=== PATIENT | female | born 1960 | race Caucasian/White ===

== ENCOUNTER 2017-02-17 08:04 | Emergency (ER) | payer MEDICARE ==
[2017-02-17 09:05] LABS: Bilirubin Negative (Negative); Blood, Urine Large (Negative); Glucose, Urine (Dipstick) Negative (Negative); Ketone, Urine Negative (Negative); Nitrite Negative (Negative); Protein, Urine (Dipstick) 30 mg/dL (Neg-Trace); Urobilinogen 0.2 mg/dL (0.2-1.0)
[2017-02-17 09:27] LABS: Hematocrit 43.2 % (36.0-47.0); Mean Platelet Volume 7.8 fL (7.4-10.4); Red Blood Cell (RBC) Count 4.53 mill/uL (4.20-5.40); White Blood Cell (WBC) Count 35.1 thou/uL (4.8-10.8)
[2017-02-17 09:40] LABS: ALT (SGPT) 43 U/L (8-55); AST (SGOT) 24 U/L (5-34); Alkaline Phosphatase 98 U/L (40-150); Anion Gap 13 mmol/L (10-20); BUN (Urea Nitrogen) 17 mg/dL (9.8-20.1); Bilirubin, Total 0.3 mg/dL (0.2-1.2); Calc. Creatinine Clearance 0 mL/min (70-130); Calcium 9.1 mg/dL (7.8-10.44); Carbon Dioxide 25 mmol/L (22-29); Chloride 99 mmol/L (98-107); Estimated GFR-MDRD 77; Globulin 2.5 g/dL (2.4-3.5); Protein, Total 6.8 g/dL (6.0-8.3)
[2017-02-17 09:46] LABS: RBC/HPF 0-3 HPF (0-3)
[2017-02-17 09:47] LABS: Bacteria/HPF 2+ HPF (None Seen); Hyaline Casts/LPF 0-3 HYALINE CAST LPF (0-3 Hyaline); Renal Epithelial 0-3 HPF (0-3); Transitional Epithelial 0-3 HPF (0-3)
[2017-02-17 09:57] LABS: Neutrophil 31 % (42-75)
== END 2017-02-17 11:20 | disposition home or self-care (01) ==
LOC: ERS 08:04
DX: N39.0 Urinary tract infection, site not specified (principal); E11.9 Type 2 diabetes mellitus without complications; I10 Essential (primary) hypertension; E78.5 Hyperlipidemia, unspecified; F41.9 Anxiety disorder, unspecified; F31.9 Bipolar disorder, unspecified
CPT/HCPCS: 36415; 80053; 81003; 81015; 85025; 87086; 96360

== ENCOUNTER 2017-06-06 10:08 | Day surgery (SDC) | payer MEDICARE ==
[2017-06-05 15:29] VITALS: BMI 32.5
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
--- NOTE | 2017-06-06 15:42 | MRI ---
MRI CERVICAL SPINE NONCONTRAST 06/06/17 HISTORY: Neck pain with bilateral arm and hand numbness. Right leg pain. FINDINGS: The spinal cord throughout the cervical levels has a normal appearance without evidence of compressio n, expansion, or abnormal signal. Vertebral body height and alignment are maintained. Bone marrow sig nal is within normal limits. Mild posterior osteophyte/disc complexes are present at the C4-5 and C6- 7 levels. At the C6-7 level, it is slightly greater to the left of midline with slight effacement of the left ventral aspect of the thecal sac. The neural foramina remain patent. IMPRESSION: Mild degenerative changes of the cervical spine as detailed above. No focal disc herniation or nerve root compression are apparent. POS: [facility]
== END 2017-06-06 17:20 | disposition home or self-care (01) ==
LOC: SDC/OP 10:08
PROVIDERS: ATTEND Specialist
DX: M43.16 Spondylolisthesis, lumbar region (principal); M54.12 Radiculopathy, cervical region; I10 Essential (primary) hypertension; G43.909 Migraine, unspecified, not intractable, without status migrainosus; E03.9 Hypothyroidism, unspecified; K58.9 Irritable bowel syndrome, unspecified; F31.9 Bipolar disorder, unspecified; E11.9 Type 2 diabetes mellitus without complications; Z88.5 Allergy status to narcotic agent; Z88.8 Allergy status to other drugs, medicaments and biological substances; Z79.4 Long term (current) use of insulin; Z79.899 Other long term (current) drug therapy; Z90.710 Acquired absence of both cervix and uterus; Z98.890 Other specified postprocedural states
CPT/HCPCS: 36416; 72141; 72148

== ENCOUNTER 2017-07-24 08:55 | Outpatient (CLI) | payer MEDICARE ==
[2017-07-24 11:25] LABS: Hemoglobin 15.4 g/dL (12.0-16.0); Mean Corpuscular HGB CONC 32.6 g/dL (32.0-36.0); Mean Corpuscular Hemoglobin 31.4 pg (27.0-31.0); Mean Corpuscular Volume 96.2 fl (81.0-99.0); Mean Platelet Volume 8.2 fL (7.4-10.4); Platelet Count 304 thou/uL (130-400); RBC Distribution Width 11.9 % (11.5-14.5); Red Blood Cell (RBC) Count 4.92 mill/uL (4.20-5.40); White Blood Cell (WBC) Count 24.7 thou/uL (4.8-10.8)
[2017-07-24 11:40] LABS: Anion Gap 14 mmol/L (10-20); BUN (Urea Nitrogen) 14 mg/dL (9.8-20.1); Calc. Creatinine Clearance 0 mL/min (70-130); Calcium 9.7 mg/dL (7.8-10.44); Carbon Dioxide 25 mmol/L (22-29); Chloride 103 mmol/L (98-107); Estimated GFR-MDRD 71; Glucose 143 mg/dL (70-105); Sodium 138 mmol/L (136-145)
--- NOTE | 2017-07-24 17:10 | EKG ---
Test Reason : Blood Pressure : / mmHG Vent. Rate : 068 BPM Atrial Rate : 068 BPM P-R Int : 188 ms QRS Dur : 104 ms QT Int : 406 ms P-R-T Axes : 049 010 007 degrees QTc Int : 431 ms Normal sinus rhythm Minimal voltage criteria for LVH, may be normal variant Cannot rule out Anterior infarct , age undetermined Abnormal ECG When compared with ECG of 19-APR-2016 11:20, CO interval has decreased Confirmed by DR. Pat AGUAYO ([id number]) on 07/24/2017 5:10:18 PM Referred By: MARCOS Confirmed By:DR. Pat AGUAYO
== END 2017-07-24 08:56 | disposition home or self-care (01) ==
LOC: LABBT 08:55
PROVIDERS: ATTEND Neurological Surgery
DX: Z01.810 Encounter for preprocedural cardiovascular examination (principal); Z01.812 Encounter for preprocedural laboratory examination; M48.061 Spinal stenosis, lumbar region without neurogenic claudication
CPT/HCPCS: 80048; 85027; 93005; 93010

== ENCOUNTER 2017-07-24 09:15 | Inpatient (IN) | payer MEDICARE ==
[2017-08-02] MEDS ORDERED: CEFAZOLIN/Water 2 GM/20 ML SYRINGE ONE (09:09)
[2017-08-02] MEDS ORDERED: Sodium Chloride 0.9% 10 ML ONE (09:32)
[2017-08-02] MEDS ORDERED: Fentanyl 250 MCG/5 ML VIAL ONE ×2 (09:41→12:16)
[2017-08-02] MEDS ORDERED: Midazolam HCl 2 mg/2 ml Vial ONE (09:41)
[2017-08-02] MEDS ORDERED: Fentanyl 100 MCG/2 ML VIAL ONE (10:53)
--- NOTE | 2017-08-02 11:26 | OP ---
DATE OF PROCEDURE: 08/02/2017 SURGEON: Aldair Joy M.D. CORRECTIONS OFFICER: Neha Gibbons PROCEDURE: Left L4-L5 laminectomy, facetectomy, foraminotomy, interbody arthrodesis, intravertebral biomechanical device, local morselized autograft, demineralized bone matrix, posterior lateral arthro desis and pedicle screw instrumentation L4-L5. PROCEDURE IN DETAIL: The patient was brought to the operating room, intubated. She was rolled in th e prone position on gel-filled chest rolls. Incision was made exposing L4-5 and our level was confir med by x-ray. We performed left L4-L5 laminectomy, facetectomy, foraminotomy, and completely decompr essed left L4 and left L5. The disc itself was incised and debrided and the bony endplates decortica sabrina for the purpose of arthrodesis. An appropriately sized intravertebral biomechanical PEEK device was brought into the field, filled with demineralized bone matrix, local morselized autograft, and ta pped into place securely at L4-5. Next, pedicle screws were placed at left L4 and left L5 using late ral fluoroscopic guidance and positioning was confirmed with x-ray. A karley was secured between the sc rews, connected by nuts which were final tightened. The wound was then extensively irrigated, immacu late hemostasis was secured. Combination of demineralized bone matrix, local morselized autograft wa s laid over the right laminar and posterolateral surfaces for the purpose of arthrodesis. Vancomycin powder was applied and the wound was then closed in anatomic layers.
[2017-08-02] MEDS ORDERED: diphenhydrAMINE 50 MG/ML VIAL IVP PRN (12:03)
[2017-08-02] MEDS ORDERED: Promethazine 25 MG TAB PO PRN (12:03)
[2017-08-02] MEDS ORDERED: tiZANidine HCl 4 MG TAB PO PRN (12:03)
[2017-08-02] MEDS ORDERED: HYDROcodone/Acetaminophen 7.5/325 mg Tablet PO PRN ×2 (12:03→15:57)
[2017-08-02] MEDS ORDERED: Milk Of Magnesia 30 ML UDCUP PO PRN (12:03)
[2017-08-02] MEDS ORDERED: diphenhydrAMINE 25 MG CAP PO PRN (12:03)
[2017-08-02] MEDS ORDERED: Mag-Al 1200 mg/1200 mg/30 ML UDCUP PO PRN (12:03)
[2017-08-02] MEDS ORDERED: Morphine 4 MG/ML Carpuject SLOW IVP PRN (12:03)
[2017-08-02] MEDS ORDERED: Promethazine HCl 25 MG/ML VIAL IM PRN (12:03)
[2017-08-02] MEDS ORDERED: Promethazine HCl 12.5 MG SUPP PR PRN (12:03)
[2017-08-02] MEDS ORDERED: Ondansetron HCl/PF 4 MG/2 ML Vial SLOW IVP PRN (12:04)
[2017-08-02] MEDS ORDERED: Morphine 2 MG/ML SYRINGE SLOW IVP PRN (13:51)
[2017-08-02] MEDS ORDERED: Morphine 4 MG/ML VIAL SLOW IVP PRN (13:52)
[2017-08-02 14:01] VITALS: BMI 33.3
[2017-08-02] MEDS: Sodium Chloride 0.9% 1,000 ML IV SCH ×2 (14:13→22:55)
[2017-08-02] MEDS ORDERED: Glycopyrrolate 0.2 MG/ML 5 ML SYRINGE ONE (14:33)
[2017-08-02] MEDS ORDERED: Dexamethasone 20 MG/5 ML VIAL ONE (14:33)
[2017-08-02] MEDS ORDERED: PROPOFOL 200 MG/20 ML VIAL ONE (14:33)
[2017-08-02] MEDS ORDERED: Naloxone HCl 0.4 mg/ml Vial ONE (14:33)
[2017-08-02] MEDS ORDERED: Ondansetron HCl/PF 4 MG/2 ML Vial ONE (14:33)
[2017-08-02] MEDS ORDERED: Lidocaine 1% PF 5 ML VIAL ONE (14:33)
[2017-08-02] MEDS ORDERED: Labetalol 100 MG/20 ML MDV ONE (14:33)
[2017-08-02] MEDS: HYDROcodone/Acetaminophen 7.5/325 mg Tablet PO PRN ×2 (15:50→20:02)
[2017-08-02] MEDS ORDERED: Haloperidol 1 MG TAB PO PRN (16:00)
[2017-08-02] MEDS ORDERED: TRULICITY SC SCH (16:00)
[2017-08-02] MEDS ORDERED: SUMAtriptan Succinate 50 MG TAB PO PRN (16:07)
[2017-08-02] MEDS: metFORMIN XR 500 MG TAB PO SCH (17:42)
[2017-08-02] MEDS: Ketorolac Tromethamine 30 MG/ML VIAL IVP SCH (17:43)
[2017-08-02] MEDS: HumaLOG 300 UNITS/3 ML VIAL SC SCH (17:44)
[2017-08-02] MEDS: CEFAZOLIN/Water 2 GM/20 ML SYRINGE SLOW IVP SCH (18:14)
[2017-08-02] MEDS: Cyclobenzaprine 10 MG TAB PO SCH (19:53)
[2017-08-02] MEDS: ALPRAZolam 1 MG TAB PO SCH (19:53)
[2017-08-02] MEDS: Oxymetazoline HCl 0.05% ( 15 ML ) NASAL SCH (19:54)
[2017-08-02] MEDS: Gabapentin 300 MG CAP PO SCH (19:54)
[2017-08-02] MEDS ORDERED: SUVOREXANT PO SCH (21:00)
[2017-08-02] MEDS ORDERED: Primidone 50 MG TAB PO SCH (21:00)
[2017-08-02] MEDS ORDERED: Donepezil HCl 10 MG TAB PO SCH (21:00)
[2017-08-02] MEDS ORDERED: Insulin Detemir 100 UNITS/ML 50 UNITS in Pre-Filled Syringe 1 EACH SC SCH (21:00)
--- NOTE | 2017-08-02 21:07 | PDOC.PN ---
- Subjective Encounter Start Date: 08/02/17 Encounter Start Time: 21:00 Subjective: Consulted for gen med mgmt s/p L-spine laminectomy L4-L5. Reviewed hx -: surgical hx, labs, rads. Some back pain but overall doing ok. - Objective MAR Reviewed: Yes Vital Signs & Weight: Vital Signs (12 hours) Temp Pulse Resp BP Pulse Ox 08/02/17 16:30 74 122/75 08/02/17 15:30 86 127/59 L 08/02/17 14:30 83 16 130/70 94 L 08/02/17 14:00 92 18 135/70 08/02/17 13:30 86 18 123/69 08/02/17 13:00 98.2 F 84 18 118/73 96 Weight Weight 200 lb Additional Labs: Accuchecks 08/02/17 17:43 POC Glucose 192 H Laboratory Tests 07/24/17 07/24/17 08/02/17 11:11 11:11 17:43 WBC 24.7 H Hgb 15.4 Hct 47.3 H Plt Count 304 Sodium 138 Potassium 4.0 Chloride 103 Carbon Dioxide 25 Anion Gap 14 BUN 14 Creatinine 0.82 Estimated GFR (MDRD) 71 POC Glucose 192 H Calcium 9.7 Radiology Reviewed by me: Yes (MRI L-spine - DJD L-spine) Phys Exam - Physical Examination Constitutional: NAD HEENT: PERRLA, oral pharynx no lesions Neck: no JVD, supple Respiratory: no wheezing, clear to auscultation bilateral Cardiovascular: RRR Gastrointestinal: soft, non-tender, no distention, positive bowel sounds Musculoskeletal: no edema, pulses present Neurological: normal sensation, moves all 4 limbs Psychiatric: A&O x 3 Skin: normal turgor, cap refill <2 seconds Dx/Plan (1) HTN (hypertension) Code(s): I10 - ESSENTIAL (PRIMARY) HYPERTENSION Status: Chronic Qualifiers: Hypertension type: essential hypertension Qualified Code(s): I10 - Essential (primary) hypertension Comment: Continue Diltiazem, Lasix (2) DM II (diabetes mellitus, type II), controlled Code(s): E11.9 - TYPE 2 DIABETES MELLITUS WITHOUT COMPLICATIONS Status: Chronic Comment: Continue Humalog 15u TID, Levemir 50u sc HS (3) Hypothyroidism Code(s): E03.9 - HYPOTHYROIDISM, UNSPECIFIED Status: Chronic Comment: Continue Levothyroxine 50mcg daily (4) Polypharmacy Code(s): Z79.899 - 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 Status: Chronic (5) DJD (degenerative joint disease), lumbosacral Code(s): M51.37 - OTHER INTERVERTEBRAL DISC DEGENERATION, LUMBOSACRAL REGION Status: Chronic (6) Bipolar 1 disorder Code(s): F31.9 - BIPOLAR DISORDER, UNSPECIFIED Status: Chronic (7) Anxiety Code(s): F41.9 - ANXIETY DISORDER, UNSPECIFIED Status: Chronic (8) Status post lumbar laminectomy Code(s): Z98.890 - OTHER SPECIFIED POSTPROCEDURAL STATES Status: Acute Comment: Pain control, early mobilization, PT/OT - Plan 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
[2017-08-03] MEDS: Ketorolac Tromethamine 30 MG/ML VIAL IVP SCH ×2 (00:14→05:27)
[2017-08-03] MEDS: CEFAZOLIN/Water 2 GM/20 ML SYRINGE SLOW IVP SCH (00:15)
[2017-08-03] MEDS: HYDROcodone/Acetaminophen 7.5/325 mg Tablet PO PRN ×3 (01:11→10:22)
[2017-08-03] MEDS ORDERED: Levothyroxine Sodium 50 MCG TAB PO SCH (06:00)
[2017-08-03] MEDS ORDERED: Spironolactone 100 MG TAB PO SCH (08:00)
[2017-08-03] MEDS: metFORMIN XR 500 MG TAB PO SCH (08:26)
[2017-08-03] MEDS: HumaLOG 300 UNITS/3 ML VIAL SC SCH (08:27)
[2017-08-03] MEDS: Oxymetazoline HCl 0.05% ( 15 ML ) NASAL SCH (08:28)
[2017-08-03] MEDS: ALPRAZolam 1 MG TAB PO SCH (08:28)
[2017-08-03] MEDS: Cyclobenzaprine 10 MG TAB PO SCH (08:31)
[2017-08-03] MEDS: Gabapentin 300 MG CAP PO SCH (08:34)
[2017-08-03] MEDS ORDERED: Furosemide 40 MG TAB PO SCH (09:00)
[2017-08-03] MEDS ORDERED: Polyethylene Glycol 3350 17 GM Packet PO SCH (09:00)
[2017-08-03] MEDS ORDERED: Ascorbic Acid 500 mg Chewable Tablet PO SCH (09:00)
[2017-08-03] MEDS ORDERED: Loratadine 10 MG TAB PO SCH (09:00)
[2017-08-03] MEDS ORDERED: Atorvastatin Calcium 20 MG TAB PO SCH (09:00)
[2017-08-03] MEDS ORDERED: ADDERALL 10 MG PO SCH (09:00)
[2017-08-03] MEDS ORDERED: VORTIOXETINE PO SCH (09:00)
--- NOTE | 2017-08-03 10:38 | PDOC.PN ---
- Subjective Encounter Start Date: 08/03/17 Encounter Start Time: 09:20 Subjective: is amb in room and hallway -: no sob - Objective MAR Reviewed: Yes Vital Signs & Weight: Vital Signs (12 hours) Temp Pulse Resp BP BP Pulse Ox 08/03/17 08:32 73 120/69 08/03/17 07:40 97.9 F 73 18 120/69 95 08/03/17 04:20 98.1 F 74 18 120/70 94 L Weight Weight 200 lb I&O: 08/02/17 08/03/17 08/04/17 06:59 06:59 06:59 Intake Total 540 Balance 540 Additional Labs: Accuchecks 08/03/17 08/02/17 05:28 17:43 POC Glucose 139 H 192 H Phys Exam - Physical Examination HEENT: PERRLA, moist MMs Neck: no JVD, supple Respiratory: no wheezing, no rales Cardiovascular: RRR, no significant murmur Gastrointestinal: soft, non-tender, positive bowel sounds Musculoskeletal: no edema, pulses present Neurological: non-focal, moves all 4 limbs Psychiatric: A&O x 3 Dx/Plan (1) Status post lumbar laminectomy Code(s): Z98.890 - OTHER SPECIFIED POSTPROCEDURAL STATES Status: Acute Comment: s/p L4-5 laminectomy (2) Anxiety Code(s): F41.9 - ANXIETY DISORDER, UNSPECIFIED Status: Chronic (3) DM II (diabetes mellitus, type II), controlled Code(s): E11.9 - TYPE 2 DIABETES MELLITUS WITHOUT COMPLICATIONS Status: Chronic Qualifiers: Diabetes mellitus complication status: with unspecified complications 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: with laser printing operator use Qualified Code(s) : E11.8 - Type 2 diabetes mellitus with unspecified complications; Z79.4 - [facility] (current) use of insulin; 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; 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
[2017-08-03 10:58] VITALS: BP 122/71; TEMP 98.1
--- NOTE | 2017-08-03 21:25 | DIS ---
DATE OF ADMISSION: 08/02/2017 DATE OF DISCHARGE: 08/03/2017 DISCHARGE DISPOSITION: To home. PRIMARY DISCHARGE DIAGNOSES: Patient is status post left L4-L5 laminectomy, facetectomy, foraminotom y. All of this done by Dr. Joy on 08/02/2017. SECONDARY DISCHARGE DIAGNOSES: Diabetes mellitus type 2, hypertension, hypothyroidism, anxiety disor desi, obesity. PROCEDURES DONE DURING HOSPITALIZATION: Patient has had above-mentioned lumbar laminectomy done by Rolanda Joy on 08/02/2017. DISCHARGE MEDICATIONS: Xanax 2 mg p.o. twice daily, vitamin C 500 mg p.o. q.a.m., Lipitor 20 mg p.o. q.a.m., Keflex 500 mg p.o. 4 times daily per Neurosurgery advice, Cardizem-CD 240 mg p.o. q.a.m., Ad derall 10 mg p.o. q.a.m., Flexeril 10 mg p.o. three times daily, donepezil 10 mg p.o. at bedtime, [place] licity 1.5 mg subcu once weekly, Nexium 40 mg twice daily, Lasix 40 mg p.o. q.a.m., gabapentin 600 mg p.o. 3 times daily, [place] p.r.n. for pain, Lantus 50 units subcu q.p.m., lispro 16 units subcu 3 ti mes daily, levothyroxine 50 mcg p.o. q.a.m., Glucophage extended release 500 mg p.o. twice daily, Michael aLax 17 grams daily, primidone 20 mg p.o. q.a.m., Aldactone 120 mg p.o. q.a.m., Belsomra 20 mg p.o. a t bedtime, Trintellix 20 mg p.o. q.a.m. ALLERGIES: To SOMA, CODEINE, GREEN PEPPER, WALNUT and PEACHES. DISCHARGE PLAN: Patient to follow up with Dr. Joy as advised. BRIEF COURSE DURING HOSPITALIZATION: Patient initially got admitted electively on the for radicu lopathy and has had left L4-L5 laminectomy, facetectomy, and foraminotomy done by Dr. Joy. Post op [facility] physicians were consulted for comanagement of medical issues. The patient has remained hemo dynamically stable. Prior to discharge, she is ambulating with a rolling walker. She has been clear ed this morning for discharge by Dr. Joy. She needs follow up with primary care physician in on e week and Dr. Joy as advised. The patient has been advised to check fingerstick glucose daily and record for a period of 10 days to follow up with her primary care physician. Please see a face-t o-face documentation on [facility] for the day of discharge.
== END 2017-08-03 12:42 | disposition home or self-care (01) | DRG 455 ==
LOC: SURG A 08-02 06:06
PROVIDERS: ADMIT Neurological Surgery; ATTEND Neurological Surgery
PROC: 0SG00AJ Fusion of Lumbar Vertebral Joint with Interbody Fusion Device, Posterior Approach, Anterior Column, Open Approach (ICD-10-PCS; principal; 2017-08-02)
PROC: 0SG0071 Fusion of Lumbar Vertebral Joint with Autologous Tissue Substitute, Posterior Approach, Posterior Column, Open Approach (ICD-10-PCS; 2017-08-02)
PROC: 0SB20ZZ Excision of Lumbar Vertebral Disc, Open Approach (ICD-10-PCS; 2017-08-02)
DX: M48.061 Spinal stenosis, lumbar region without neurogenic claudication (principal); E03.9 Hypothyroidism, unspecified; M47.26 Other spondylosis with radiculopathy, lumbar region; E11.9 Type 2 diabetes mellitus without complications; I10 Essential (primary) hypertension; F41.9 Anxiety disorder, unspecified; E66.9 Obesity, unspecified; Z68.33 Body mass index [BMI] 33.0-33.9, adult; F31.9 Bipolar disorder, unspecified
CPT/HCPCS: 36416; 76001; A4216; C1713; C1768; G8978-GP-CJ; G8979-GP-CI; J1100; J1815; J1885; J2001; J2250; J2270; J2310; J2405; J2704; J3010; J3370; J3490

== ENCOUNTER 2017-08-17 15:40 | Outpatient (CLI) | payer MEDICARE ==
--- NOTE | 2017-08-17 16:40 | RAD ---
TWO VIEWS LUMBAR SPINE 08/17/17 HISTORY: Patient with recent surgery, left hip pain. AP and lateral views lumbar spine is obtained. Comparison made to previous exam from 11/07/07. Two views lumbar spine demonstrate left sided L4-L5 fusion using left sided pedicle screws. The left L4 screw appears to be lateral and slightly superior to the expected course of the left L4 pedicle. T here is mild anterolisthesis of L4 on L5. Left L5 pedicle screw appears to be in good position. Mild dextroscoliosis seen. IMPRESSION: L4-5 postsurgical changes. The left L4 pedicle screw appears to be somewhat lateral and slightly supe rior to the expected course of the L4 pedicle. POS: [facility]
== END 2017-08-17 15:41 | disposition home or self-care (01) ==
LOC: TBSIIMAG 15:40
PROVIDERS: ATTEND Neurological Surgery
DX: M51.16 Intervertebral disc disorders with radiculopathy, lumbar region (principal); Z98.890 Other specified postprocedural states
CPT/HCPCS: 72100

== ENCOUNTER 2017-09-07 09:03 | Outpatient (CLI) | payer MEDICARE ==
--- NOTE | 2017-09-07 10:30 | RAD ---
LEFT KNEE FIVE VIEWS: HISTORY: Left knee pain. COMPARISON: None. FINDINGS: Five views of the left knee show no evidence of acute fracture or dislocation. No knee effusion is s een. No degenerative changes are present. IMPRESSION: Unremarkable exam. POS: [facility]
== END 2017-09-07 09:04 | disposition home or self-care (01) ==
LOC: RAD 09:03
PROVIDERS: ATTEND Specialist
DX: M25.562 Pain in left knee (principal)

== ENCOUNTER 2017-10-25 14:43 | Outpatient (CLI) | payer MEDICARE ==
--- NOTE | 2017-10-25 15:39 | RAD ---
LUMBAR SPINE: 10/25/17 Two views. Views were obtained standing. COMPARISON: 08/17/17. INDICATIONS; Intervertebral disc disorder of lumbar region. Low back pain. Pedicle screws are noted on the left at L4 and L5 levels. The left L4 screw has an abnormal superior position that is unchanged from the prior exam. Interbody implant at L4-5 has migrated posteriorly and is now within the spinal canal. The posterior markers are overlying the posterior elements at L4-5. This has progressed with posterior migration wh en compared to 08/17/17. The markers for this interbody implant are located laterally to the left in t he AP projection. The lumbar vertebrae maintain height. There is a grade I anterolisthesis at L4-5 which is unchanged. IMPRESSION: There is continued posterior migration of the interbody implant at L4-5. This implant appears to be l ocated laterally to the left as seen in the AP projection. Its posterior markers overlie the posterio r elements in the lateral projection. It has moved posteriorly since the exam of 08/17/17. The L4 pedicle screw is superiorly positioned but is unchanged from prior exam. POS: [facility]
== END 2017-10-25 14:44 | disposition home or self-care (01) ==
LOC: TBSIIMAG 14:43
PROVIDERS: ATTEND Neurological Surgery
DX: M51.16 Intervertebral disc disorders with radiculopathy, lumbar region (principal); Z98.890 Other specified postprocedural states
CPT/HCPCS: 72100

== ENCOUNTER 2018-04-04 09:53 | Outpatient (CLI) | payer MEDICARE ==
--- NOTE | 2018-04-04 12:23 | RAD ---
LUMBAR SPINE 4 VIEWS: Date: 04/04/18 HISTORY: Low back pain. Prior surgery. FINDINGS: There are five lumbar-type vertebrae. The left L4 pedicle screw remains lateral and superior to the L 4 vertebra, unchanged in position from the prior exam. Posterior displacement of the metallic markers associated with the L4-5 disc material is unchanged from the previous exam. Grade I spondylolisthesi s at the L4-5 level is stable. Vertebral body heights are maintained. Mild rightward convex curvature . Other pedicles are intact. IMPRESSION: Displacement of L4 pedicle and L4-5 disc material is unchanged from the 10/25/17 exam. Other findings are also stable. POS: [facility]
--- NOTE | 2018-04-04 13:11 | CT ---
CT LUMBAR SPINE NONCONTRAST: History: Low back pain. Prior surgery. Left leg pain. FINDINGS: Vertebral body height and alignment are maintained. ` T12-L1, L1-2, L2-3, L3-4: Mild osteophytosis. The central canal and neural foramina are patent. L4-5: Post-operative changes are now apparent. The left L4 pedicle screw is sagittally oriented exten ding through the base of the left L4 transverse process and entering the left psoas muscle. The left S1 pedicle screw is in good position, extending just anterior to the left anterior sacral margin. Rig ht laminectomy defect. Prominent osteophytosis. Severe stenosis of the thecal sac remains. The interb atiya fusion material and associated metallic markers extend leftward and posteriorly into the neural f oramen. Left L4 nerve root is not delineated from the disc material. Moderate stenosis of the right n eural foramen. L5-S1: Minimal disc bulge. Osteophytosis. Thecal sac and neural foramina remain patent. IMPRESSION: 1. Post-operative changes at the L4-5 level, with displacement of the left L4 pedicle screw and inter body disc material as detailed above. Resultant compression of the thecal sac and left L4 nerve root. 2. Other mild degenerative changes throughout the lumbar spine. POS: [facility]
== END 2018-04-04 09:54 | disposition home or self-care (01) ==
LOC: BICCT 09:53
PROVIDERS: ATTEND Specialist
DX: M51.16 Intervertebral disc disorders with radiculopathy, lumbar region (principal); M47.26 Other spondylosis with radiculopathy, lumbar region; Z98.1 Arthrodesis status
CPT/HCPCS: 72110; 72131

== ENCOUNTER 2018-06-08 07:17 | Outpatient (CLI) | payer MEDICARE ==
--- NOTE | 2018-06-08 13:39 | NM ---
GASTRIC EMPTYING EXAM: 06/08/2018 HISTORY: Vomiting. TECHNIQUE: The patient ingested 2.2 millicuries of technetium labeled sulfur colloid in a scrambled egg, and ant erior planar imaging is obtained of the abdomen over 4 hours. FINDINGS: There is prompt radiotracer activity within the stomach on post ingestion imaging. There is 23% empt peggy at 30 minutes, 29% emptying at 60 minutes, 37% emptying at 2 hours, 47% emptying at 3 hours, and 60% emptying at 4 hours. T-1/2 is estimated at 199 minutes, abnormal. Normal half-time of gastric emptying is 90 minutes or l ess. IMPRESSION: Delayed gastric emptying. POS: [facility]
== END 2018-06-08 07:18 | disposition home or self-care (01) ==
LOC: NM 07:17
PROVIDERS: ATTEND Internal Medicine Gastroenterology
DX: R11.2 Nausea with vomiting, unspecified (principal)
CPT/HCPCS: 78264; A9541

== ENCOUNTER 2018-09-28 10:26 | Day surgery (SDC) | payer MEDICARE ==
[2018-09-27 10:42] VITALS: BMI 29.1
--- NOTE | 2018-09-28 13:55 | MRI ---
PRE AND POSTCONTRAST ENHANCED MRI IMAGES LUMBAR SPINE: HISTORY: Chronic back pain. FINDINGS: Multiplanar multisequence pre and postcontrast enhanced MRI images lumbar spine obtained. Comparison made to previous exam from 06/06/2017. T12-L1: Disc desiccation seen. There is a left lateral recess focal disc protrusion which compresses the thecal sac unchanged since the previous exam without evidence of significant nerve root compression. L1-2: Unremarkable . L2-3: Minimal facet hypertrophy is seen; otherwise, unremarkable. L3-4: Disc desiccation is seen. There is bilateral facet and ligamentum flavum hypertrophy seen. Smal l amount of fluid seen in the L3-4 facet joints. The central canal neural foramen are patent. L4-5: There is anterolisthesis of L4 on L5. There is been interval placement of left pedicle surgical hardware across the L4 and L5 levels. Minimal anterolisthesis is again seen. Severe bilateral L4-5 facet hypertrophic and degenerative changes seen. There is a moderate degree of central and lateral r ecess stenosis at L4-5. L5-S1: Minimal broad-based disc bulge seen. The central canal and neural foramen are patent. IMPRESSION: L4-5 anterolisthesis with bilateral facet hypertrophy. There has been interval placement of left L4 a nd L5 pedicle screws with hemifusion. Transcribed Date/Time: 09/28/2018 1:59 PM
[2018-09-28] MEDS ORDERED: Fentanyl 100 MCG/2 ML VIAL ONE (13:59)
[2018-09-28] MEDS ORDERED: Succinylcholine Chloride 20 MG/ML 10 ml SYRINGE FS ONE (15:47)
[2018-09-28] MEDS ORDERED: PROPOFOL 200 MG/20 ML VIAL ONE (15:47)
[2018-09-28] MEDS ORDERED: Gadobenate Dimeglumine 529 MG/1 ML (20ML VIAL) ONE (16:49)
== END 2018-09-28 15:47 | disposition home or self-care (01) ==
LOC: SDC/OP 10:26
PROVIDERS: ATTEND Orthopaedic Surgery
DX: M43.10 Spondylolisthesis, site unspecified (principal); M48.061 Spinal stenosis, lumbar region without neurogenic claudication; Z79.899 Other long term (current) drug therapy; Z88.5 Allergy status to narcotic agent; Z88.8 Allergy status to other drugs, medicaments and biological substances; Z91.018 Allergy to other foods; Z98.1 Arthrodesis status
CPT/HCPCS: 36416; 72158; 82565; A9577; J2704; J3010; J7620

== ENCOUNTER 2019-08-06 08:53 | Outpatient (CLI) | payer MEDICARE ==
--- NOTE | 2019-08-06 10:15 | RAD ---
PA AND LATERAL VIEWS CHEST: HISTORY: Dyspnea. COMPARISON: 06/04/2019. FINDINGS: The heart size is normal. The lungs are expanded without lobar consolidation, pneumothoraces, or ple ural effusions. Bony structures are unremarkable. IMPRESSION: Stable exam. No radiographic evidence of acute cardiopulmonary process. POS: [facility]
== END 2019-08-06 08:54 | disposition home or self-care (01) ==
LOC: RAD 08:53
PROVIDERS: ATTEND Internal Medicine Critical Care Medicine
DX: R06.00 Dyspnea, unspecified (principal)
CPT/HCPCS: 71046

== ENCOUNTER 2019-12-23 09:14 | Outpatient (CLI) | payer MEDICARE ==
--- NOTE | 2019-12-23 09:31 | RAD ---
XR Lumbar Spine 2 Or 3 View HISTORY: Low back pain. Bilateral leg pain history of previous surgery. COMPARISON: 04/04/2018 study FINDINGS: The vertebral bodies maintain normal height. There are now bilateral pedicle screws at the L4-5 level markers of the disc implants are within the confines of the disc level. A spondylolisthesis of approximately 7 mm is seen of L4 on L5. Mild disc narrowing is seen at L5-S1. IMPRESSION: Postop changes of the spine.
== END 2019-12-23 09:15 | disposition home or self-care (01) ==
LOC: BICRAD 09:14
PROVIDERS: ATTEND Orthopaedic Surgery
DX: Z47.89 Encounter for other orthopedic aftercare (principal); Z98.890 Other specified postprocedural states
CPT/HCPCS: 72100

== ENCOUNTER → 2020-01-14 | Outpatient (CLI) | payer MEDICARE, OTHER ==
[2020-01-15 12:58] LABS: SARS-CoV-2 MS2 Positive; SARS-CoV-2 N Gene Negative; SARS-CoV-2 S Gene Negative; SARS-CoV-2 by NAA Not Detected (NotDetected); SARS-CoV-2 orf1ab Negative
== END ==
LOC: LABBT 08:00
PROVIDERS: ATTEND Specialist
DX: M51.16 Intervertebral disc disorders with radiculopathy, lumbar region (principal); M43.07 Spondylolysis, lumbosacral region; Z20.828 Contact with and (suspected) exposure to other viral communicable diseases
CPT/HCPCS: 87635; U0003

== ENCOUNTER 2020-01-17 11:44 | Day surgery (SDC) | payer MEDICARE ==
[2020-01-15 12:33] VITALS: BMI 31.2
[~2020-01-17 11:44] MED LIST: PROPOFOL 200 MG/20 ML VIAL ONE
[2020-01-17 12:44] LABS: Anion Gap 15 mmol/L (10-20); BUN (Urea Nitrogen) 22 mg/dL (9.8-20.1); Calc. Creatinine Clearance 83 mL/min (70-130); Calcium 9.1 mg/dL (7.8-10.44); Carbon Dioxide 20 mmol/L (23-31); Chloride 106 mmol/L (98-107); Estimated GFR-MDRD 59; Glucose 103 mg/dL (80-115); Potassium 4.4 mmol/L (3.5-5.1); Sodium 137 mmol/L (136-145)
--- NOTE | 2020-01-17 13:33 | MRI ---
MRI LUMBAR SPINE WITH AND WITHOUT CONTRAST: DATE: 01/17/2020 HISTORY: 59-year-old female with low back pain and bilateral lumbar radiculopathy. COMPARISON: 09/28/2018 TECHNIQUE: Multiple sequences obtained in axial and sagittal planes, pre and post IV injection of gadolinium-bas ed contrast agent. FINDINGS: There are 5 lumbar-type vertebrae. Vertebral body heights are maintained. No major bone marrow signal abnormality. Conus medullaris terminates at L1-2. T12-L1:Focal left-central disc herniation or disc-osteophyte complex indents thecal sac. Associated a djacent chronic endplate osseous changes. Modic type II endplate marrow changes also. No central or neural foraminal stenosis. No interval change L1-2:Normal L2-3:Normal L3-4:Interval development of minimal disc space narrowing and disc desiccation. Interval development of new retrolisthesis of L3 on L4. No high-grade neural foraminal stenosis. No central spinal canal stenosis despite these new changes. Between the hypertrophic, kissing spinous processes ([place]'s d isease), there is a new finding of a thin layer of fluid. L4-5:In addition to the previously demonstrated unilateral left pedicle screws at L4 and L5, there ar e now new right pedicle screws at L4 and L5. Furthermore, there has been interval placement of bone graft interbody cage in the disc space. Grade 1 anterolisthesis of L4 on L5 again noted. Magnetic carlos ceptibility artifact from hardware makes it difficult to evaluate degree of neural foraminal stenosis. Probably no high-grade right neural foraminal stenosis. Questionable mild or moderate left neural foraminal stenosis, unchanged. Mild central spinal canal stenosis. Mild ligamentum flavum thickening due to bilateral facet DJD. L5-S1:Disc space maintained. There are small central disc protrusion. Generous caliber of spinal serenity l and thecal sac. No neural foraminal stenosis. Moderate right facet DJD. Mild left facet DJD. No interval change. Signal abnormalities throughout the bilateral posterior perivertebral space involvin g posterior paraspinal musculature could represent postsurgical changes or denervation changes, from L5 level through S2-3 levels. Unchanged. IMPRESSION: 1) as treatment for the grade 1 spondylolisthesis at L4-5, there has been interval placement of new r ight pedicle screws, plus new interbody bone graft cage, in addition to the pre-existing left pedicle screws. 2) interval development of mild degenerative disc disease at L3-4. 3) no high-grade central spinal canal stenosis or definite high-grade neural foraminal stenosis, at a ny level. 4) chronic findings at T12-L1 and involving the posterior paraspinal musculature at the sacral levels , are unchanged.
--- NOTE | 2020-01-17 16:48 | EKG ---
Test Reason : PRE-OP Blood Pressure : / mmHG Vent. Rate : 066 BPM Atrial Rate : 066 BPM P-R Int : 190 ms QRS Dur : 108 ms QT Int : 408 ms P-R-T Axes : 046 000 034 degrees QTc Int : 427 ms Normal sinus rhythm Minimal voltage criteria for LVH, may be normal variant Borderline ECG No previous ECGs available Confirmed by DR. Kai TATUM ([id number]) on 01/17/2020 4:47:50 PM Referred By: BRUNO Confirmed By:DR. Kai TATUM
== END 2020-01-17 14:50 | disposition home or self-care (01) ==
LOC: SDC/OP 11:44
PROVIDERS: ATTEND Specialist
DX: M51.16 Intervertebral disc disorders with radiculopathy, lumbar region (principal); M43.16 Spondylolisthesis, lumbar region; M47.26 Other spondylosis with radiculopathy, lumbar region; M47.22 Other spondylosis with radiculopathy, cervical region; M96.1 Postlaminectomy syndrome, not elsewhere classified; M54.81 Occipital neuralgia; M46.1 Sacroiliitis, not elsewhere classified; I10 Essential (primary) hypertension; E03.9 Hypothyroidism, unspecified; F31.9 Bipolar disorder, unspecified; E11.43 Type 2 diabetes mellitus with diabetic autonomic (poly)neuropathy; K31.84 Gastroparesis; G43.909 Migraine, unspecified, not intractable, without status migrainosus; Z85.6 Personal history of leukemia; Z79.4 Long term (current) use of insulin; Z79.899 Other long term (current) drug therapy; Z88.5 Allergy status to narcotic agent; Z88.6 Allergy status to analgesic agent; Z88.8 Allergy status to other drugs, medicaments and biological substances; Z91.018 Allergy to other foods; Z98.1 Arthrodesis status
CPT/HCPCS: 72158; 80048; 93005; 93010; J2704

== ENCOUNTER 2020-02-21 10:58 | Outpatient (CLI) | payer MEDICARE ==
--- NOTE | 2020-02-21 11:38 | RAD ---
EXAM: XR Lumbar Spine Min 4 View PROVIDED CLINICAL HISTORY: Spondylolisthesis COMPARISON: 04/04/2018 FINDINGS: 5 nonrib-bearing lumbar-type vertebral bodies are demonstrated. There is grade 1 anterolisthesis of L 4 on L5. Lumbar alignment appears otherwise normal. Bilateral pedicle screws and vertical interconnecting rods span L4-5 with associated intervertebral disc device. There is no evidence for h ardware loosening or migration. There is no abnormal translational motion apparent with flexion and extension. Vertebral body heights appear preserved. Intervertebral disc space heights appear preserve d. Vascular calcifications are demonstrated. IMPRESSION: Postoperative changes as described.
== END 2020-02-21 10:59 | disposition home or self-care (01) ==
LOC: BICRAD 10:58
PROVIDERS: ATTEND Specialist
DX: M43.16 Spondylolisthesis, lumbar region (principal); Z98.890 Other specified postprocedural states
CPT/HCPCS: 72110

== ENCOUNTER 2020-10-13 09:46 | Outpatient (CLI) | payer MEDICARE ==
[2020-10-13 20:26] LABS: SARS-CoV-2 PCR by NAA Not Detected (NotDetected)
== END 2020-10-13 09:47 | disposition home or self-care (01) ==
LOC: LABBT 09:46
PROVIDERS: ATTEND Specialist
DX: Z01.812 Encounter for preprocedural laboratory examination (principal); M51.16 Intervertebral disc disorders with radiculopathy, lumbar region; M96.1 Postlaminectomy syndrome, not elsewhere classified; G89.4 Chronic pain syndrome; Z20.822 Contact with and (suspected) exposure to COVID-19
CPT/HCPCS: U0003; U0005; 87635

== ENCOUNTER 2020-10-16 07:48 | Day surgery (SDC) | payer MEDICARE ==
[2020-10-15 11:03] VITALS: BMI 35.4
[2020-10-16] MEDS ORDERED: EPINEPHrine 1 MG/ML AMP ONE (08:53)
[2020-10-16] MEDS ORDERED: Sodium Chloride 0.9% 0 ML ONE (08:53)
[2020-10-16] MEDS ORDERED: Bupivacaine PF 0.5% 30 ML VIAL ONE (08:53)
[2020-10-16] MEDS ORDERED: Midazolam HCl 2 mg/2 ml Vial ONE ×2 (11:06→13:35)
[2020-10-16] MEDS ORDERED: Propofol 500 MG/50 ML VIAL ONE (11:07)
[2020-10-16] MEDS ORDERED: Lidocaine 1% PF 5 ML VIAL ONE (11:09)
[2020-10-16] MEDS ORDERED: Esmolol 100 MG/10 ML VIAL ONE (11:09)
[2020-10-16] MEDS ORDERED: PROPOFOL 200 MG/20 ML VIAL ONE ×2 (11:09)
[2020-10-16] MEDS ORDERED: Fentanyl 100 MCG/2 ML VIAL ONE (11:27)
== END 2020-10-16 14:15 | disposition home or self-care (01) ==
LOC: SDC 07:48
PROVIDERS: ATTEND Specialist
PROC: 0JH70BZ Insertion of Single Array Stimulator Generator into Back Subcutaneous Tissue and Fascia, Open Approach (ICD-10-PCS; principal; 2020-10-16)
PROC: 00HU3MZ Insertion of Neurostimulator Lead into Spinal Canal, Percutaneous Approach (ICD-10-PCS; 2020-10-16)
DX: G89.4 Chronic pain syndrome (principal); M96.1 Postlaminectomy syndrome, not elsewhere classified; M51.16 Intervertebral disc disorders with radiculopathy, lumbar region; M43.07 Spondylolysis, lumbosacral region; M46.1 Sacroiliitis, not elsewhere classified; M47.22 Other spondylosis with radiculopathy, cervical region; I25.10 Atherosclerotic heart disease of native coronary artery without angina pectoris; Z79.4 Long term (current) use of insulin; Z79.899 Other long term (current) drug therapy; Z88.5 Allergy status to narcotic agent; Z88.6 Allergy status to analgesic agent; Z88.8 Allergy status to other drugs, medicaments and biological substances; Z91.018 Allergy to other foods
CPT/HCPCS: 63650 ×2; 63685; 72020; 76000; 82962; C1778; C1787; L8687; L8689; 36416; J0171; J0690; J2250; J2704; J3010; J3490; S0020

== ENCOUNTER 2022-02-08 07:32 | Outpatient (CLI) | payer MEDICARE ==
[2022-02-08] MEDS ORDERED: Iopamidol-370 76% 500 ML 1 ML ONE (10:36)
== END 2022-02-08 07:33 | disposition home or self-care (01) ==
LOC: BICCT 07:32
PROVIDERS: ATTEND Family Medicine
DX: G45.9 Transient cerebral ischemic attack, unspecified (principal)
CPT/HCPCS: 70470; 82565; Q9967

== ENCOUNTER 2022-02-17 09:54 | Day surgery (SDC) | payer MEDICARE ==
[2022-02-16 13:54] VITALS: BMI 32.9
[2022-02-17] MEDS ORDERED: Propofol 500 MG/50 ML VIAL ONE (11:54)
[2022-02-17] MEDS ORDERED: Dexamethasone 4 mg/ml Vial ONE (12:12)
[2022-02-17] MEDS ORDERED: Bupivacaine HCl 0.5%/Epinephrine 1:200,000/PF 30 ml Vial ONE (12:12)
[2022-02-17] MEDS ORDERED: fentaNYL Citrate/PF 100 MCG/2 ML SYRINGE ONE (12:20)
[2022-02-17] MEDS ORDERED: Ondansetron PF 4 MG/2 ML Vial ONE ×2 (12:21→12:31)
[2022-02-17] MEDS ORDERED: Sodium Chloride 0.9% 100 ML ONE (12:23)
[2022-02-17] MEDS ORDERED: CEFAZOLIN 2 GM VIAL ONE (12:23)
== END 2022-02-17 14:38 | disposition home or self-care (01) ==
LOC: SDC 09:54
PROVIDERS: ATTEND Specialist
PROC: 0JWT0MZ Revision of Stimulator Generator in Trunk Subcutaneous Tissue and Fascia, Open Approach (ICD-10-PCS; principal; 2022-02-17)
DX: M96.1 Postlaminectomy syndrome, not elsewhere classified (principal); G89.4 Chronic pain syndrome; M54.16 Radiculopathy, lumbar region; T85.840A Pain due to nervous system prosthetic devices, implants and grafts, initial encounter; I10 Essential (primary) hypertension; E03.9 Hypothyroidism, unspecified; E11.9 Type 2 diabetes mellitus without complications; K21.9 Gastro-esophageal reflux disease without esophagitis; Z85.6 Personal history of leukemia; Z79.4 Long term (current) use of insulin; Z79.890 Hormone replacement therapy; Z79.899 Other long term (current) drug therapy; Z88.5 Allergy status to narcotic agent; Z88.8 Allergy status to other drugs, medicaments and biological substances; Z91.018 Allergy to other foods; Y75.3 Surgical instruments, materials and neurological devices (including sutures) associated with adverse incidents
CPT/HCPCS: C1787; C1820; J0690; J1100; J2405; J2704; J3370; J3490; L8689

== ENCOUNTER 2022-10-04 14:59 | Emergency (ER) | payer MEDICARE ==
[2022-10-04] MEDS ORDERED: Mag-Al 1200 mg/1200 mg/30 ML UDCUP ONE (15:41)
[2022-10-04] MEDS ORDERED: Pantoprazole 40 MG VIAL ONE (15:41)
[2022-10-04] MEDS ORDERED: Lidocaine Viscous Sol 2% 15 ml UD Cup ONE (15:41)
[2022-10-04 15:52] LABS: Hemoglobin 13.3 g/dL (12.0-16.0); Manual Diff?? YES; Mean Corpuscular HGB CONC 32.8 g/dL (32.0-36.0); Mean Corpuscular Volume 91.4 fl (78.0-98.0); Mean Platelet Volume 11.1 fL (7.4-10.4); Platelet Count 231 10x3/uL (130-400); RBC Distribution Width 12.5 % (11.5-14.5); Red Blood Cell (RBC) Count 4.44 mill/uL (4.20-5.40); White Blood Cell (WBC) Count 23.1 10x3/uL (4.8-10.8)
[2022-10-04] MEDS ORDERED: Prochlorperazine Edisylate 10 MG in Sodium Chloride 0.9% 50 ML IVPB SCH (16:00)
[2022-10-04 16:17] LABS: ALT (SGPT) 30 U/L (8-55); AST (SGOT) 21 U/L (5-34); Albumin 4.1 g/dL (3.4-4.8); Alkaline Phosphatase 120 U/L (40-110); Anion Gap 12 mmol/L (10-20); BUN (Urea Nitrogen) 12 mg/dL (9.8-20.1); Bilirubin, Total 0.5 mg/dL (0.2-1.2); Calc. Creatinine Clearance 0 mL/min (70-130); Calcium 8.7 mg/dL (7.8-10.44); Carbon Dioxide 21 mmol/L (23-31); Chloride 108 mmol/L (98-107); Estimated GFR 68; Globulin 2.2 g/dL (2.4-3.5); Glucose 279 mg/dL (80-115); Lipase 42 U/L (8-78); Potassium 3.9 mmol/L (3.5-5.1); Protein, Total 6.3 g/dL (5.8-8.1); Sodium 137 mmol/L (136-145)
[2022-10-04 16:31] LABS: Band 1 % (5-11); Burr Cells SLIGHT = 2-5 cells HPF (0-1); CellaVision Operator ID LAB.KB; Eosinophils 3 % (0-10); Lymphocytes 50 % (21-51); Monocytes 5 % (0-10); Neutrophil 41 % (42-75); Platelet Morphology Comment Platelets Normal; Smudge Cells 113.1 %; Total Cell Count 99
[2022-10-04 17:26] LABS: Bilirubin Negative (Negative); Blood, Urine Negative (Negative); Clarity Clear (Clear); Glucose, Urine (Dipstick) 200 mg/dL (Negative); Ketone, Urine Negative (Negative); Leukocyte 75 Leu/uL (Negative); Nitrite Negative (Negative); Protein, Urine (Dipstick) Negative (Neg-Trace); RBC/HPF 0-3 HPF (0-3); Specific Gravity, Urine 1.004 (1.002-1.036); Squamous Epithelial 0-3 HPF (0-3); Urobilinogen Normal mg/dL (Less than 2); pH, Urine 6.5 (5.0-9.0)
[2022-10-04 18:32] LABS: Bacteria/HPF Rare-Few HPF (None Seen)
== END 2022-10-04 18:42 | disposition home or self-care (01) ==
LOC: ERS 14:59
DX: K31.84 Gastroparesis (principal); E11.9 Type 2 diabetes mellitus without complications; E78.5 Hyperlipidemia, unspecified; I11.0 Hypertensive heart disease with heart failure; Z79.899 Other long term (current) drug therapy
CPT/HCPCS: 80053; 81003; 81015; 83690; 85025; 87077; 87086; 93005; 96361; 96365; 96375; C9113; J0780

== ENCOUNTER 2024-03-05 07:56 | Outpatient (CLI) | payer MEDICARE ==
[2024-03-05] MEDS ORDERED: Iopamidol 370 76% 100 ML VIAL ONE (10:33)
== END 2024-03-05 07:57 | disposition home or self-care (01) ==
LOC: CT 07:56
PROVIDERS: ATTEND Physician Assistant Medical
DX: K21.9 Gastro-esophageal reflux disease without esophagitis (principal); K31.84 Gastroparesis; R10.10 Upper abdominal pain, unspecified; R16.0 Hepatomegaly, not elsewhere classified; K76.0 Fatty (change of) liver, not elsewhere classified
CPT/HCPCS: 36415; 74177; 82565; Q9967

== ENCOUNTER 2024-03-14 08:20 | Outpatient (CLI) | payer MEDICARE | END 2024-03-14 08:21 | disposition home or self-care (01) | LOC: ULT 08:20 | PROVIDERS: ATTEND Physician Assistant Medical | DX: Q44.1 Other congenital malformations of gallbladder (principal); K80.20 Calculus of gallbladder without cholecystitis without obstruction; K76.0 Fatty (change of) liver, not elsewhere classified | CPT/HCPCS: 76705 ==